=== PATIENT | female | born 1995 | race Caucasian/White ===

== ENCOUNTER 2023-01-27 23:47 | Emergency (ER) | payer MEDICAID ==
[~2023-01-27] VITALS: Ht 167 cm; Wt 135.5 kg
--- NOTE | 2023-01-28 01:04 | ED EENT ---
History of Present Illness General Chief Complaint: Ear Problems Stated Complaint: RT EAR PAIN,PORRAS,EAR DRAINING Nursing Triage Note: PATIENT COMPLAINT OF EARACHE. STATES DRAINAGE. Source: patient Exam Limitations: no limitations (DANIKA PARNELL) History of Present Illness Date Seen by Provider: Jan 28, 2023 Time Seen by Provider: 00:25 Initial Comments Our patient is a 27 yo F who presents to the emergency department with a 2 day history of right ear pain accompanied by fluid drainage. She states that the pain began yesterday after she blew her nose and heard a "squealing" noise in the right ear. At that point she noticed an immediate decrease in her hearing and experienced constant pain throughout the rest of the day. At around 9 this morning, she began to experience drainage from the right ear canal that she describes as sometimes clear and sometimes brown in color. Her pain is now intermittent rather than constant and she also indicates a mild headache, lightheadedness, nausea without vomiting, and right jaw pain. She denies recent sick contacts, fever, chills, changes in bowel habits, recent allergy exacerbations, or sore throat. She notes no previous occurrences but does state that she was supposed to have surgery on her right ear in 2020 but instead had to have an adenoidectomy so this operation was never performed. She denies other medical problems. She has a history of bilateral ear tube placement as a child. Location Injury Occurred: Right ear Timing/Duration: abrupt, yesterday Severity: moderate Location: ear (R) Associated Symptoms: change in hearing; No cough; ear drainage, facial pain/swelling (Right jaw pain); No fever, No nasal congestion/drainage, No sore throat (DANIKA PARNELL) Allergies and Home Medications Allergies Coded Allergies: No Known Drug Allergies (Unverified , 01/28/23) Patient Home Medication List Home Medication List Reviewed: Yes (ZOË FISHER MD) Cefdinir (Cefdinir) 300 Mg Capsule, 300 MG PO BID Prescribed by: ZOË ADKINS on 01/28/23 0132 Review of Systems Review of Systems Constitutional: see HPI; No chills; dizziness; No fever, No weakness Eyes: No Symptoms Reported; Denies Blurred Vision, Denies Drainage, Denies Vision Changes Ears: Dizziness, Pain (Right-sided), Tinnitus, Bloody Discharge, Clear Discharge Nose: no symptoms reported, see HPI Mouth: no symptoms reported Throat: no symptoms reported; denies pain, denies swelling, denies painful swallowing Respiratory: no symptoms reported; No cough Cardiovascular: no symptoms reported Gastrointestinal: No abdominal pain, No constipation, No diarrhea; nausea; No vomiting Musculoskeletal: no symptoms reported Skin: no symptoms reported Neurological: Headache (Mild) Hematologic/Lymphatic: No Symptoms Reported Immunological/Allergic: no symptoms reported; denies food allergy (DANIKA PARNELL) All Other Systems Reviewed Negative Unless Noted: Yes (DANIKA PARNELL) Past Lisgjqt-Pummih-Ywkjol Hx Patient Social History Tobacco Use?: No Substance use?: No Alcohol Use?: No (DANIKA PARNELL) Immunizations Up To Date Influenza Vaccine Up-to-Date: No; Not Current First/Initial COVID19 Vaccinat: N/A Second COVID19 Vaccination Kevin: N/A Third COVID19 Vaccination Date: N/A (DANIKA PARNELL) Past Medical History Adenoidectomy, Ear Surgery (Bilateral tube placements), Tonsillectomy, Tubal Ligation Respiratory: No Cardiac: No Neurological: No Gastrointestinal: No Musculoskeletal: No Cancer: No (DAINKA PARNELL) Physical Exam Vital Signs Vital Signs - First Documented 01/27/23 23:57 Temp 36.0 Pulse 85 Resp 18 B/P (MAP) 128/81 (97) (ZOË FISHER MD) Height, Weight, BMI Height: '" Weight: lbs. oz. kg; 48.00 BMI Method: General Appearance: WD/WN, no apparent distress Ears: right ear discharge, right ear tenderness; left ear TM normal; bilateral ear auricle normal, bilateral ear canal normal Nose: normal inspection Mouth/Throat: normal mouth inspection, pharynx normal Neck: non-tender, supple, normal inspection Cardiovascular: regular rate, rhythm, no edema, no gallop, no JVD, no murmur Respiratory: chest non-tender, lungs clear, normal breath sounds, no respiratory distress, no accessory muscle use Gastrointestinal: normal bowel sounds, non tender, soft Neurologic/Psychiatric: alert, normal mood/affect, oriented x 3 Skin: normal color, warm/dry (DANIKA PARNELL) Progress/Results/Core Measures Results/Orders My Orders Orders - ZOË FISHER MD Cefdinir Capsule (Omnicef Capsule) (01/28/23 01:30) (ZOË FISHER MD) Medications Given in ED Current Medications Medications Dose Ordered Sig/Anni Route Start Time Stop Time Status Last Admin Dose Admin Cefdinir 300 mg ONCE ONCE PO 01/28/23 01:30 01/28/23 01:31 DC 01/28/23 01:37 300 MG (ZOË FISHER MD) Vital Signs/I&O 01/27/23 23:57 Temp 36.0 Pulse 85 Resp 18 B/P (MAP) 128/81 (97) (ZOË FISHER MD) Blood Pressure Mean: 97 Progress Progress Note : Progress Note Patient was interviewed and examined by me personally along with MS4. She was found to have right OM with perforation. She has used Amoxicillin extensively in the past and feels she has gained resistance. She requested and alternative antibiotic and cefdinir was administered. She intends to follow-up with her ENT in [place]. By history, patient describes eustacian tube dysfunction with frequent ear popping and muffled hearing. Fluticasone nasal spray was recommended. See discharge instructions for further discussion. (ZOË FISHER MD) Departure Impression Primary Impression: Otitis media Qualified Codes: H66.014 - Acute suppurative otitis media with spontaneous rupture of ear drum, recurrent, right ear Additional Impression: Eustachian tube dysfunction Qualified Codes: H69.81 - Other specified disorders of eustachian tube, right ear Disposition: 01 HOME, SELF-CARE Condition: Improved Departure-Patient Inst. Referrals: NO,LOCAL PHYSICIAN (PCP/Family) Primary Care Physician Patient Instructions: Eustachian tube problems, Ruptured Eardrum (DC), Ear Infection ED Add. Discharge Instructions: Complete your antibiotic as prescribed. Call Dr. Gonzalez's office tomorrow to schedule a follow-up appointment. You should be seen in 1 to 2 weeks to have your ear reevaluated. It is important to keep your ear dry until you are sure the eardrum has healed. Do not submerge your head until you are cleared by Dr. Gonzalez. Start using Flonase (or generic fluticasone) 2 sprays per nostril daily to help keep your eustachian tubes open and draining. You may take Tylenol (acetaminophen) up to 1000 mg every 6 hours as needed and/or ibuprofen up to 600 mg every 6 hours as needed for pain. Return to the emergency room if you have worsening symptoms despite following these instructions. All discharge instructions reviewed with patient and/or family. Voiced understanding. Scripts Cefdinir (Cefdinir) 300 Mg Capsule 300 MG PO BID, #20 CAP 0 Refills Prov: ZOË FISHER MD 01/28/23 Medical Student Attestation and Attending Note: I have personally interviewed and examined this patient along with . I have reviewed student documentation including history, physical, and assessments. I agree with the documentation except where otherwise noted. Exam: General: Alert, oriented, no acute distress, well developed HEENT: Right TM normal. Loss of landmarks of right TM. Erythema and purulent effusion note. Fluid and bubbles coming from presume perforation at the 2 o'clock position, especially if she plugs nose and applies pressure. Heart: Regular rate and rhythm without murmur Lungs: Clear to auscultation bilaterally with normal effort Neuropsych: Alert, oriented, no focal deficits Skin: Warm and dry without rashes (ZOË FISHER MD) DANIKA PARNELL Jan 28, 2023 01:04 ZOË FISHER MD Jan 28, 2023 01:28
[2023-01-28] MEDS ORDERED: CEFDINIR 300 MG (OMNICEF) CAP PO ONE (01:30)
[2023-01-28] MEDS ORDERED: CEFD300C3 PO ×2 (01:32→17:43)
[2023-01-28 01:37] VITALS: BP 128/81
== END 2023-01-28 01:37 | disposition home or self-care (01) ==
LOC: ER 23:52
DX: H66.91 Otitis media, unspecified, right ear (principal); H69.81 Other specified disorders of Eustachian tube, right ear; Z96.22 Myringotomy tube(s) status; Z28.310 Unvaccinated for COVID-19
CPT/HCPCS: 99282; 99283